=== PATIENT | female | born 1970 | race Caucasian/White ===

== ENCOUNTER 2022-01-13 06:01 | Day surgery (SDC) | payer BC, SELFPAY ==
[2022-01-13] VITALS (7 sets, daily range): BP systolic 98–112; BP diastolic 56–77; PULSE 64–76; RESP 16; TEMP 36.1–36.8; O2SAT 99–100; BMI 29.5
[2022-01-13] MEDS: Lactated Ringers 1,000 ML 15 ML IV (06:44)
--- NOTE | 2022-01-13 06:49 | HP.PCM_ITS ---
History and Physical Date of Admission: 01/13/22 Date of Service: 01/04/22 MR#:[id number]:[id number]: QUIANA ROWE [facility] #:[id number] Provider:Fausto Ware/Sex: 51/F [facility] Vital Signs 01/04/22 14:33 Height 5 ft 6 in Weight: 190 lb BMI 30.7 BP 117/74 Blood Pressure Location Rt brachial Position Sitting Respiration 16 Intake Visit Reasons: PORT PLACEMENT Chief Complaint: port placement Svp Of Digital Required: No Is patient in pain?: No Allergies No Known Allergies Allergy (Unverified 01/04/22 14:33) Medications acetaminophen 325 mg capsule 325 mg PO ONCE PRN 12/22/21 [History Confirmed 01/04/22] PFSH Medical History Anemia Cervical cancer Regional lymph node metastasis present Surgical History H/O exploratory laparotomy History of radical hysterectomy Hx of tubal ligation Previous section Family History Father COPD (chronic obstructive pulmonary disease) Heart disease Sister CVA (cerebral vascular accident) Social History household members: spouse number of children: 4 current occupational status: other details: on FMLA other: pt had two children (1 , 1 ) Smoking Status: Former smoker pack-years: 10 Tobacco: How many years used: 20 how long ago did patient quit smoking: smoked [id number]; quit smoking >16 years ago alcohol intake: current alcohol intake frequency: holidays/special occasions only Alcohol type: wine and other substance use type: does not use caffeine: Yes Type: coffee Number of servings: 2 HPI HPI HPI: QUIANA ROWE, is a 51 F who presents to the office today for port placement due to cervical cancer. Patient states she is still recovering from surgery. Patient does have a dense appointment tomorrow as she has a previous cracked tooth question if it needs to be pulled prior to starting chemotherapy. Patient states plan to start chemotherapy January 16. ROS General General: Yes fatigue; No weight change, appetite, colon cancer or breast cancer HEENT HEENT: No difficulty swallowing, eye injury, eye surgery, swollen glands or hoarseness Endo Endocrine: No thyroid disease, diabetes mellitus, thyroid cancer, Hair loss, heat intolerance or cold intolerance Skin Skin: No rash or changing moles Musc Musculoskeletal: No back problems, arthritis, rheumatoid arthritis, gout or join t pain Cardio Cardiovascular: No murmur, pacemaker, heart disease, atrial fibrillation, high blood pressure, heart attack, heart stent, palpitations, shortness of breat with exertion or chest pain Psych Psychiatric: Yes depression and anxiety; No hearing voices Resp Respiratory: No shortness of breath, No sleep apnea, No cough, No COPD, No asthma, No emphysema and No wheezing Gastro Gastrointestinal: Yes abdominal pain, No nausea or vomiting, No diarrhea, No constipation, No blood in stool, No acid reflux, No hemorrhoids, No ulcers, No gallbladder problem and No black,tarry stools Juan Hematologic: No blood thinners, No blood disorders, No bleeding, No anemia and No blood clots Neuro Neurologic: No abnormal speech and No confusion Exam Const General: cooperative, healthy appearing, comfortable and no acute distress Neck Neck: normal visual inspection Chest Other: Inspection and palpation of bilateral upper chest normal Resp Effort & Inspection: normal respiratory effort Cardio Rate: regular rate GI Inspection: non-distended Palpation: soft Skin General: no rashes or lesions noted Neuro General: patient oriented x3 Psych Affect: normal affect Assessment and Plan Assessment and Plan (1) Encounter for fitting and adjustment of vascular catheter: Status: Acute (2) Cervical cancer: Status: Acute Qualifiers: Malignant neoplasm of cervix location: unspecified location Qualified Code(s): C53.9 - Malignant neoplasm of cervix uteri, unspecified (3) Regional lymph node metastasis present: Status: Acute Plan - Dr. Kelly Arreaga MD: I have discussed above with the patient- Port-a-Cath placement. Right possible left Patient has been counseled as to the risks/benefits of the procedure. I have explained the risks of the surgery, including but not limited to: infection, bleeding, injury to any blood vessels/nerves, injury to lungs (such as pneumothorax or hemothorax and need for chest tube), not having any access, nonfunctioning of port due to thrombosis, infection of port, etc. the patient understands and agrees to proceed. I have answered all the patient's questions to the patient?s satisfaction and the patient has no further questions. Kelly Arreaga M.D. Pager: [phone] [facility] [address] [place] [address], [address] [place] [address] Office: [phone] Coding Level of Care Code Off vis,new,level 3 Diagnoses Encounter for fitting and adjustment of vascular catheter Z45.2 Cervical cancer C53.9 Malignant neoplasm of cervix location: unspecified location Regional lymph node metastasis present C77.9 01/04/22 1452<Electronically signed by Kelly Arreaga MD>Date Kelly Arreaga MD
[2022-01-13] MEDS: Cefazolin 2 GM in 0.9% Normal Saline 100 ML IV (07:34)
[2022-01-13] MEDS: Bupivacaine Mpf 0.5% 30 ML VIAL (07:46)
[2022-01-13] MEDS: Lidocaine 1% /Epi 1:100 (20ml) 20 ML Vial (07:46)
--- NOTE | 2022-01-13 08:09 | RAD_ITS ---
STUDY: X-RAY CHEST REASON FOR EXAM: Female, 51 years old. Port -- pacu TECHNIQUE: Single AP portable view of the chest. COMPARISON: None. FINDINGS: A right-sided Port-A-Cath has been placed. The tip is at the junction of the superior vena cava and right atrium. The lungs are clear and expanded. Scattered granulomas. There is no demonstrated pleural abnormality. Normal size heart. Normal mediastinum and son. Normal visualized pulmonary arteries. Normal visualized aortic arch and descending thoracic aorta. Normal visualized thoracic spine. Normal visualized ribs, clavicles, and shoulders. There is no demonstrated abnormality of the visualized soft tissue structures of the upper abdomen. RAD/CXR for Line Placement IMPRESSION: The tip of the right portacatheter is at the junction of the superior vena cava and right atrium. Electronically Signed: Kameron Tripathi MD at 9:00 EDT ,
--- NOTE | 2022-01-13 08:09 | PCM.OPRPT ---
Report of Operation Date of Procedure: 01/13/22 Pre-Operative Diagnosis: Z45.2, cervical cancer Post-Operative Diagnosis: Same Surgery/Procedure Performed:: 1. Placement of right IJ Port-A-Cath 2. Use of fluoroscopy 3. Use of ultrasound Surgeon: Kelly Arreaga Type of Anesthesia: Local MAC Anesthesiologist: Telly Badillo Special Medications: Ancef 2 g IV x1 Estimated Blood Loss (mL): Minimal Description of Procedure: After informed consent was given, the patient was brought to the operating room and placed in the supine position. Appropriate time out protocol was followed. Patient was then given IV conscious sedation for anesthesia. The patient's right upper chest and neck were then prepped with a surgical skin preparation and sterile surgical drapes were placed. After proper landmarks were ascertained, the skin at the upper right chest area was then infiltrated with 1:1 mixture of 1% lidocaine with epinephrine and 0.5% marcaine. A needle trocar was then inserted into the right internal jugular vein with ultrasound guidance-multiple vessels were viewed with u/s and the right IJ was chosen-- and there was good aspiration of venous blood. A wire was then threaded into the needle trocar and this was visualized under fluoroscopy to ensure that the wire was in the superior vena cava. Once this was done, then the needle trocar was removed. A small skin scottie was made with an 11 blade knife at the wire entrance site. The dilator with the introducer sheath attached was then placed over the wire into the right internal jugular vein via the Seldinger technique and this was visualized under fluoroscopy. The dilator and sheath were in proper position as visualized by fluoroscopy. A subcutaneous pocket was then created caudad to the catheter insertion site. A transverse skin incision was made after the skin and subcutaneous tissues were infiltrated with local anesthetic. Blunt dissection was then used to create a space large enough for placement of the subcutaneous port. The catheter was then tunneled into the subcutaneous pocket. The wire and dilator were then removed. The catheter was then threaded into the introducer sheath and was positioned with its tip at the junction of the superior vena cava and the right atrium as visualized under fluoroscopy. The excess catheter was transected. The catheter was then attached to the subcutaneous port using manufacturers guidelines. The catheter was flushed with a heparin saline mixture prior to placement. Hemostasis was carefully controlled with electrocautery. The port was sutured to the subcutaneous fascia using 2-0 Vicryl suture at two sites. The port was then placed in the subcutaneous pocket. The incision were reapproximated with interrupted subdermal 3-0 vicryl sutures. The skin was reapproximated with 3-0 nylon suture in a interrupted fashion. Steristrips were used for reinforcement of the skin closure at IJ insertion site and a sterile opsite dressings were applied. The patient tolerated the procedure well. Grafts/Implants Used: Bard PowerPort isp M.R.I. 6Fr Lot [id number] Complications none
--- NOTE | 2022-01-13 08:11 | EX.PCM.DISCH ---
Discharge Instructions Procedure Port-A-Cath Diet Discharge Diet: Light diet - advance as tolerated Activity May shower in (days): 5 (Keep port site clean and dry x5 days. Neck incision okay to get wet after 1 day. Okay to lower shower and upper sponge bath. OR okay to taper off port site with a Ziploc bag to shower) Lifting Restrictions: No lifting > 15 pounds for 3 days with the arm on the side of the port Dressing / Incision Call your doctor if your incision/area has: Continuous Slow Oozing, Sudden Increased Bleeding, Increased Pain/ Swelling, Increased Redness, Foul Smelling Discharge and Swelling at the incision site Call your doctor if you observe: Fever of 101 or Higher Change Dressing in: 2 days Follow Up Care Please Follow Up With: Kelly Arreaga MD When: In 10 days for permanent suture removal?call office for appointment Test Results: Test results from this visit will be discussed in further detail at your follow-up appointment, if applicable. Discharge Plan Admission Attending Provider: Kelly Arreaga Discharge Orders/Prescriptions Prescriptions: No Action acetaminophen 325 mg capsule 325 mg PO ONCE PRN (Reason: Pain) RF: 0 prochlorperazine maleate 10 mg tablet 10 mg PO Q6H PRN (Reason: nausea and vomiting) Qty: 30 RF: 2 ondansetron 8 mg tablet,disintegrating 8 mg PO Q8H PRN (Reason: nausea and vomiting) Qty: 30 RF: 1 lidocaine-prilocaine 2.5-2.5 % cream 1 applic topical ONCE PRN (Reason: port access) 30 Days Qty: 30 RF: 2 dexamethasone 4 mg tablet 8 mg PO .COMPLEX Qty: 40 RF: 0 polyethylene glycol 3350 [Miralax] 17 gram Powder In Packet 17 g PO DAILY PRN (Reason: Constipation) RF: 0 Referrals / Follow Up: AMAURY TIM [Other] Disposition Disposition (needs filled in before D/C Order can be placed): Home, Self Care
== END 2022-01-13 09:20 | disposition home or self-care (01) ==
LOC: SDC 06:07 → AC 06:08
PROVIDERS: Referring Provider Surgery; Visit Provider Surgery
PROC: (CPT 36561; principal; 2022-01-13 07:15)
DX: Z45.2 Encounter for adjustment and management of vascular access device (principal); C77.9 Secondary and unspecified malignant neoplasm of lymph node, unspecified; C53.9 Malignant neoplasm of cervix uteri, unspecified; Z87.891 Personal history of nicotine dependence; D64.9 Anemia, unspecified
CPT/HCPCS: 36561; 00532; 71045; 77001; J7120; J2405

== ENCOUNTER 2022-03-02 10:23 | Emergency (ER) | payer BC, SELFPAY ==
[2022-03-02 10:24] VITALS: BP 110/70; PULSE 116; RESP 18; TEMP 36.6; O2SAT 100; BMI 29.0
--- NOTE | 2022-03-02 10:39 | EX.ED.DYSGE1 ---
HPI <SHAKILA Guerin - Last Filed: 03/02/22 13:07> History of Present Illness Chief Complaint: Nausea/Vomiting Narrative Narrative: 51-year-old female with PMH of cervical cancer s/p radical hysterectomy presents with nausea and vomiting. She just finished chemo and radiation treatments about a week ago. The day after her last radiation treatment she started to have nausea and vomiting which was initially just once per day but has progressively worsened. Her radiation doctor had prescribed antiemetics to take on a schedule but over the last 2 days she has not been able to keep them down. She has not been eating and drinking and today had decreased urine output. Normal bowel movements. She has no significant abdominal pain just cramping while vomiting. PFSH <SHAKILA Guerin - Last Filed: 03/02/22 13:07> PFS Medical History Anemia Anxiety Back pain Bladder disease Cancer Cervical cancer CINV (chemotherapy-induced nausea and vomiting) Depression Diarrhea Diarrhea due to drug Elevated ALT measurement Encounter for chemotherapy management Encounter for education Former smoker Heartburn Herpes zoster Loose, teeth Low iron Mild acid reflux Regional lymph node metastasis present Restless legs Tinnitus Wears glasses Home Medications dexamethasone 4 mg tablet 8 mg PO .COMPLEX #40 tabs 01/05/22 [Rx Last Taken Unknown] lidocaine-prilocaine 2.5 %-2.5 % topical cream 1 applic topical ONCE PRN port access 30 days #30 grams 01/05/22 [Rx Last Taken Unknown] prochlorperazine maleate 10 mg tablet 10 mg PO Q6H PRN nausea and vomiting #30 tabs 01/05/22 [Rx Last Taken Unknown] acetaminophen 500 mg tablet (Tylenol Extra Strength) 500 mg PO Q6H PRN 01/17/22 [History Last Taken Unknown] simethicone 125 mg capsule (Gas-X Extra Strength) 125 mg PO QD-BID PRN 01/23/22 [History Last Taken Unknown] ondansetron HCl 8 mg tablet 8 mg PO Q8H #30 tabs 02/14/22 [Rx Last Taken Unknown] loperamide 2 mg capsule (Imodium A-D) 2 mg PO Q6H PRN 02/15/22 [History Last Taken Unknown] ondansetron HCl 4 mg tablet 4 mg PO Q6H PRN nausea and vomiting 5 days #15 tabs 03/02/22 [Rx Last Taken Unknown] Allergy/AdvReac Type Severity Reaction Status Date / Time No Known Allergies Allergy Verified 03/02/22 10:26 Family History Father COPD (chronic obstructive pulmonary disease) Heart disease Sister CVA (cerebral vascular accident) Surgical History H/O exploratory laparotomy History of radical hysterectomy Hx of tubal ligation Previous section Social History household members: spouse number of children: 4 current occupational status: other details: on FMLA other: pt had two children (1 , 1 ) Smoking Status: Former smoker pack-years: 10 Tobacco: How many years used: 20 how long ago did patient quit smoking: smoked [id number]; quit smoking >16 years ago alcohol intake: current alcohol intake frequency: holidays/special occasions only Alcohol type: wine and other substance use type: does not use caffeine: Yes Type: coffee Number of servings: 2 ROS <SHAKILA Guerin - Last Filed: 03/02/22 13:07> ROS ED ROS Narrative Constitutional: Negative for fever, chills, malaise. Eyes: Negative for visual change. ENT: Negative for sore throat, ear pain, rhinorrhea. CVS: Negative for palpitations, chest pain, syncope. Respiratory: Negative for shortness of breath, cough, orthopnea. GI: Positive for nausea, vomiting. Negative for abdominal pain, diarrhea, constipation, melena, hematochezia. : Negative for dysuria, hematuria or frequency. Neuro: Negative for headache, motor/sensory dysfunction. Skin: Negative for rash, abscess, or wound. Musc: Negative for joint pain, swelling, trauma. Heme: Negative for easy bruising, bleeding, lymphadenopathy. EXAM <SHAKILA Guerin - Last Filed: 03/02/22 13:07> Physical Exam Narrative Exam Narrative: CONST: Patient sitting in no acute distress. EYES: Normal inspection. ENT: Normal inspection, dry mucous membranes. NECK: Normal inspection. RESP: No respiratory distress, CTAB. CVS: Rapid but regular rhythm, no murmur, no gallop. ABD: Soft and nontender, no guarding or rebound, nondistended. SKIN: Color normal, no rash, warm, dry, intact. EXTREMITIES: Normal appearance, no pedal edema. NEURO: Oriented x4. PSYCH: Normal affect. Const Vital Signs: 03/02/22 10:24 03/02/22 11:09 03/02/22 13:33 Temperature 97.9 F 97.9 F Temperature Source Temporal Temporal Pulse Rate 116 H 116 H 82 Respiratory Rate 18 18 16 Blood Pressure 110/70 110/70 110/60 Blood Pressure Mean 83 83 Pulse Ox 100 100 99 Oxygen Delivery Method Room Air Room Air <Dr. Faisal Ambrosio MD - Last Filed: 03/02/22 13:51> Physical Exam Const Vital Signs: 03/02/22 10:24 03/02/22 11:09 03/02/22 13:33 Temperature 97.9 F 97.9 F Temperature Source Temporal Temporal Pulse Rate 116 H 116 H 82 Respiratory Rate 18 18 16 Blood Pressure 110/70 110/70 110/60 Blood Pressure Mean 83 83 Pulse Ox 100 100 99 Oxygen Delivery Method Room Air Room Air [facility] <SHAKILA Guerin - Last Filed: 03/02/22 13:07> [facility] Narrative Medical decision making narrative: Patient presents with worsening nausea and vomiting after she finished chemo and radiation last week. She appears well and nontoxic. She is tachycardic in the 110s, otherwise normal vital signs. She has dry mucous membranes with an otherwise benign exam and a soft, nonsurgical abdomen. Plan is to give IV fluids. antiemetics and check basic labs. Labs show improving white count at 3.2, stable anemia at 10.4. Sodium is 134 with the rest of the BMP within normal limits. After zofran and reglan patient is symptomatically improved and able to tolerate p.o. intake. I prescribed Zofran tablets for home. She refused the ODT stating they make her more nauseous but can tolerate the normal tablets. She was discharged in stable condition. Diagnoses 1. Nausea and vomiting 1. History of cervical cancer s/p chemo and radiation I have personally performed a face to face assessment of the patient and have reviewed the DIANA Note. I performed a substantive portion of the visit including all aspects of the following. My pierce findings include: History is remarkable for nausea and vomiting status postchemotherapy. Patient states she vomited once or twice after chemo. Yesterday she vomited numerous times. She presents with dry mouth, thirst and orthostatic symptoms. She contacted the [facility] [place] and they recommended she come to the emergency department. She denies fever or chills. She denies HEENT, cardiac or respiratory symptoms. She denies diarrhea. Exam is patient appears slightly pale. Conjunctive is pale. HEENT exam is remarkable dry tongue and buccal mucosa. Otherwise, the HEENT exams unremarkable. Heart lung exam is unremarkable. Abdomen is soft slightly tympanitic bowel sounds are diminished. Medical Decision Making we will obtain basic metabolic panel to assess electrolytes and renal function. 2 L of normal saline were ordered. She was treated with IV antiemetic. Other additions or changes: [None] Lab Data Attestation: I reviewed the patient's lab results. Labs: Laboratory Results - last 24 hr 03/02/22 03/02/22 10:53 10:53 WBC 3.2 L RBC 3.65 L Hgb 10.4 L Hct 31.1 L MCV 85.2 MCH 28.5 MCHC 33.4 RDW Std Deviation 66.9 H RDW Coeff of Christopher 21.4 H Plt Count 239 MPV 9.5 Immature Gran % (Auto) 0.600 Neut % (Auto) 68.3 Lymph % (Auto) 8.7 L [place] % (Auto) 22.4 H Eos % (Auto) 0.0 Baso % (Auto) 0.0 Absolute Neuts (auto) 2.2 Absolute Lymphs (auto) 0.28 L Nucleated RBC % 0 Differential Comment COMMENT Diff Path Review May foll Anisocytosis 1+ Sodium 134 L Potassium 3.7 Chloride 99 Carbon Dioxide 26.0 Anion Gap 9 BUN 11 Creatinine 0.95 Estim Creat Clear Calc 64.85 Est GFR (MDRD) Af Amer 79 Est GFR (MDRD) Non-Af 65 BUN/Creatinine Ratio 11.6 Glucose 120 H Calcium 9.5 <Dr. Faisal Ambrosio MD - Last Filed: 03/02/22 13:51> [facility] Narrative Medical decision making narrative: Patient presents with worsening nausea and vomiting after she finished chemo and radiation last week. She appears well and nontoxic. She is tachycardic in the 110s, otherwise normal vital signs. She has dry mucous membranes with an otherwise benign exam and a soft, nonsurgical abdomen. Plan is to give IV fluids and Zofran and check basic labs. Labs show improving white count at 3.2, stable anemia at 10.4. Sodium is 134 with the rest of the BMP within normal limits. Patient is symptomatically improved and able to tolerate p.o. intake. I prescribed Zofran ODT for home and she was discharged in stable condition. Diagnoses 1. Nausea and vomiting 1. History of cervical cancer s/p chemo and radiation I have personally performed a face to face assessment of the patient and have reviewed the DIANA Note. I performed a substantive portion of the visit including all aspects of the following. My pierce findings include: History is remarkable for nausea and vomiting status postchemotherapy. Patient states she vomited once or twice after chemo. Yesterday she vomited numerous times. She presents with dry mouth, thirst and orthostatic symptoms. She contacted the [facility] and they recommended she come to the emergency department. She denies fever or chills. She denies HEENT, cardiac or respiratory symptoms. She denies diarrhea. Exam is patient appears slightly pale. Conjunctive is pale. HEENT exam is remarkable dry tongue and buccal mucosa. Otherwise, the HEENT exams unremarkable. Heart lung exam is unremarkable. Abdomen is soft slightly tympanitic bowel sounds are diminished. Medical Decision Making we will obtain basic metabolic panel to assess electrolytes and renal function. 2 L of normal saline were ordered. She was treated with IV antiemetic. Other additions or changes: [None] Lab Data Labs: Laboratory Results - last 24 hr 03/02/22 03/02/22 10:53 10:53 WBC 3.2 L RBC 3.65 L Hgb 10.4 L Hct 31.1 L MCV 85.2 MCH 28.5 MCHC 33.4 RDW Std Deviation 66.9 H RDW Coeff of Christopher 21.4 H Plt Count 239 MPV 9.5 Immature Gran % (Auto) 0.600 Neut % (Auto) 68.3 Lymph % (Auto) 8.7 L [place] % (Auto) 22.4 H Eos % (Auto) 0.0 Baso % (Auto) 0.0 Absolute Neuts (auto) 2.2 Absolute Lymphs (auto) 0.28 L Nucleated RBC % 0 Differential Comment COMMENT Diff Path Review May foll Anisocytosis 1+ Sodium 134 L Potassium 3.7 Chloride 99 Carbon Dioxide 26.0 Anion Gap 9 BUN 11 Creatinine 0.95 Estim Creat Clear Calc 64.85 Est GFR (MDRD) Af Amer 79 Est GFR (MDRD) Non-Af 65 BUN/Creatinine Ratio 11.6 Glucose 120 H Calcium 9.5 Discharge Plan Triage Chief Complaint: Nausea/Vomiting ED Midlevel Provider: Karen Hummel ED Provider: Faisal Ambrosio Dx/Rx/DC Orders Clinical Impression: Nausea & vomiting Instructions: ED Vomiting (Adult) Prescriptions: New ondansetron HCl 4 mg tablet 4 mg PO Q6H PRN (Reason: nausea and vomiting) 5 Days Qty: 15 0RF No Action prochlorperazine maleate 10 mg tablet 10 mg PO Q6H PRN (Reason: nausea and vomiting) Qty: 30 2RF lidocaine-prilocaine 2.5-2.5 % cream 1 applic topical ONCE PRN (Reason: port access) 30 Days Qty: 30 2RF dexamethasone 4 mg tablet 8 mg PO .COMPLEX Qty: 40 0RF Rx Instructions: 8 mg PO On days 2, 3 and 4 of chemotherapy cycle only; acetaminophen [Tylenol Extra Strength] 500 mg tablet 500 mg PO Q6H PRN simethicone [Gas-X Extra Strength] 125 mg capsule 125 mg PO QD-BID PRN ondansetron HCl 8 mg tablet 8 mg PO Q8H Qty: 30 2RF loperamide [Imodium A-D] 2 mg capsule 2 mg PO Q6H PRN Primary Care Provider: AMAURY TIM Referrals: [facility] Doctor,Out of [NON-STAFF] - Activity Restrictions/Additional Instructions: Take zofran as needed every 6 hours. Drink fluids and if you cannot manage your vomiting at home return to the ER. Disposition Disposition: Home, Self Care Discharge Date/Time: 03/02/22 13:35
[2022-03-02] MEDS: 0.9% Normal Saline 1,000 ML 999 ML IV ×2 (10:57→12:15)
[2022-03-02] MEDS: Ondansetron 4 MG/2 ML Vial IV (10:59)
[2022-03-02 11:09] VITALS: BP 110/70; PULSE 116; RESP 18; TEMP 36.6; O2SAT 100
[2022-03-02 11:10] LABS: Absolute Lymphocyte Count 0.28 X10^3/uL (0.83-4.51); Absolute Neutrophil Count 2.2 X10^3/uL (2.0-7.7); Hematocrit 31.1 % (37-47); Hemoglobin 10.4 g/dL (12.0-15.0); Lymphocyte # 0.28 X10^3/ul (0.83-4.51); Lymphocyte % 8.7 % (19-41); Mean Corp Hgb Conc 33.4 g/dL (32-36); Mean Corpuscular Hgb 28.5 pg (27.0-32.0); Mean Corpuscular Volume 85.2 fL (81-99); Mean Platelet Vol. 9.5 fl (6.2-12.0); Monocyte# 0.72 X10^3/uL; Monocyte% 22.4 % (0-10); NRBC Flagged by Analyzer 0 % (0-5); Neutrophil % 68.3 % (47-70); POSITIVE DIFFERENTIAL YES; POSITIVE MORPHOLOGY YES; Platelet Count 239 K/mm3 (150-450); RBC Distribution Width CV 21.4 % (11.6-14.6); RBC Distribution Width SD 66.9 fl (35.1-43.9); Red Blood Count 3.65 M/mm3 (4.2-5.4); White Blood Count 3.2 K/mm3 (4.4-11.0)
[2022-03-02 11:11] LABS: Differential Indicated SCAN CRITERIA MET
[2022-03-02 11:18] LABS: Anion Gap 9 (5-15); BUN 11 mg/dL (7-18); BUN/Creat Ratio 11.6 RATIO (10-20); Calcium,Total 9.5 mg/dL (8.5-10.1); Chloride 99 mmol/L (98-107); Creatinine, Serum 0.95 mg/dL (0.55-1.02); EST Glomerular Filtration Rate 65 mL/min (>60); Est Glom Filt Rate - Afr Amer 79 mL/min (>60); Estimated Creatinine Clearance 64.85 ml/min; Glucose 120 mg/dL (74-106); Potassium 3.7 mmol/L (3.5-5.1); Sodium Level 134 mmol/L (136-145)
[2022-03-02 11:30] LABS: Anisocytosis 1+
[2022-03-02] MEDS: Metoclopramide 10 MG/2 ML Vial 5 MG IV (11:38)
[2022-03-02 13:33] VITALS: BP 110/60; PULSE 82; RESP 16; O2SAT 99
[2022-03-03 13:07] LABS: Pathologist Review Reviewed
== END 2022-03-02 13:35 | disposition home or self-care (01) ==
PROVIDERS: Physician Assistant; Emergency Provider Emergency Medicine; Visit Provider Emergency Medicine
DX: R11.2 Nausea with vomiting, unspecified (principal); D64.9 Anemia, unspecified; Z87.891 Personal history of nicotine dependence; Z85.41 Personal history of malignant neoplasm of cervix uteri; Z92.21 Personal history of antineoplastic chemotherapy
CPT/HCPCS: 36591; 80048; 85025; 96361; 96374; 96375; 99284; J7030; A4216; J2405

== ENCOUNTER 2022-03-22 16:19 | Inpatient (IN) | payer BC, SELFPAY ==
[2022-03-22 16:20] VITALS: BP 123/81; PULSE 101; RESP 18; TEMP 36.4; O2SAT 100; BMI 25.9
--- NOTE | 2022-03-22 16:32 | CT_ITS ---
EXAM: CT ABDOMEN AND PELVIS WITHOUT INTRAVENOUS CONTRAST CLINICAL INDICATION: left flank pain TECHNIQUE: Helically acquired images were obtained of the abdomen and pelvis without intravenous contrast. This CT exam was performed using one or more of the following dose reduction techniques: automated exposure control, adjustment of the mA and/or kV according to patient size, and/or use of iterative reconstruction technique. This report was created using Qwilr report generation technology. COMPARISON: None. FINDINGS: LOWER THORAX: Unremarkable. Lung bases are clear. No cardiomegaly. No significant pericardial effusion. ABDOMEN: LIVER: Unremarkable. Homogeneous. GALLBLADDER AND BILE DUCTS: Unremarkable. No calcified gallstones. No gallbladder distention or wall edema. No intra- or extrahepatic biliary ductal dilation. PANCREAS: Unremarkable. No focal cystic mass. SPLEEN: Unremarkable. Normal size without focal cystic or solid mass. ADRENALS: Unremarkable. No nodules. KIDNEYS AND URETERS: There is left-sided hydronephrosis and hydroureter. There is a 5 mm stone in the mid left ureter. Normal renal size and position. STOMACH AND BOWEL: Unremarkable. No stomach or bowel distention. No focal inflammatory change. PELVIS: APPENDIX: No evidence of acute appendicitis. BLADDER: Unremarkable. REPRODUCTIVE: Unremarkable as visualized. No mass. ABDOMEN and PELVIS: INTRAPERITONEAL SPACE: Unremarkable. No ascites or other fluid collection. No free air. BONES/JOINTS: Unremarkable. No suspicious lytic or blastic abnormality. SOFT TISSUES: Unremarkable. No discrete abdominal or pelvic wall hernia. VASCULATURE: Unremarkable. Abdominal aorta is non-dilated. LYMPH NODES: Unremarkable. No enlarged lymph nodes. CT/Abdomen/Pelvis without Cont IMPRESSION: Obstruction of the left collecting system due to a 5 mm stone in the mid ureter. There is moderate to severe left-sided hydronephrosis and hydroureter. Electronically Signed: Raheem Hawthorne MD at 17:11 EDT ,
--- NOTE | 2022-03-22 16:33 | EX.ED.DYSGE1 ---
HPI History of Present Illness Chief Complaint: Abd Pain Informant: patient Onset/Context/Timing Onset: Days Context: Gradual Onset Narrative Narrative: Patient presents from oncology office for evaluation. Patient was diagnosed with stage III cervical cancer and had a hysterectomy, oophorectomy, lymph node removal in November. At that time with there was an injury to the left ureter that was repaired. Patient completed 4-6 cycles of cisplatin in late January. She finished radiation in mid February. Since she has completed her treatment she continues to have significant nausea and vomiting. She was seen in the office 1 week ago and had been noted to lose 15 pounds in 3 weeks. She met with nutrition and continued her antiemetics. She followed up today and has lost an additional 4 pounds. Patient states she was able to keep down a few sips of water today. She had hypoactive bowel sounds noted on exam and has been complaining of left flank pain for the past 5 days. She denies urinary symptoms. She reports having a normal bowel movement yesterday and is passing gas today. CBC and chemistry studies were obtained in the office. Creatinine is 1.07 with a baseline of 0.6. Hemoglobin is 10.2. [facility] Medical History Anemia Anxiety Back pain Bladder disease Cancer Cervical cancer CINV (chemotherapy-induced nausea and vomiting) Depression Diarrhea Diarrhea due to drug Elevated ALT measurement Encounter for chemotherapy management Encounter for education Former smoker Heartburn Herpes zoster Loose, teeth Low iron Mild acid reflux Regional lymph node metastasis present Restless legs Smell or taste sensation disturbance Tinnitus Wears glasses Weight loss Home Medications lidocaine-prilocaine 2.5 %-2.5 % topical cream 1 applic topical ONCE PRN port access 30 days #30 grams 01/05/22 [Rx Last Taken Unknown] acetaminophen 500 mg tablet (Tylenol Extra Strength) 500 mg PO Q6H PRN Pain 01/17/22 [History Last Taken Unknown] simethicone 125 mg capsule (Gas-X Extra Strength) 125 mg PO QD-BID PRN Gastric Reflux 01/23/22 [History Last Taken Unknown] loperamide 2 mg capsule (Imodium A-D) 2 mg PO Q6H PRN Diarrhea 02/15/22 [History Last Taken Unknown] prochlorperazine maleate 10 mg tablet 10 mg PO Q6H PRN nausea and vomiting #30 tabs 03/07/22 [Rx Last Taken Unknown] ondansetron HCl 8 mg tablet 8 mg PO Q8H #30 tabs 03/20/22 [Rx Last Taken Unknown] Allergy/AdvReac Type Severity Reaction Status Date / Time No Known Allergies Allergy Verified 03/22/22 16:20 Family History Father COPD (chronic obstructive pulmonary disease) Heart disease Sister CVA (cerebral vascular accident) Surgical History H/O exploratory laparotomy History of radical hysterectomy Hx of tubal ligation Previous section Social History household members: spouse number of children: 4 current occupational status: other details: on FMLA other: pt had two children (1 , 1 ) Smoking Status: Former smoker pack-years: 10 Tobacco: How many years used: 20 how long ago did patient quit smoking: smoked [id number]; quit smoking >16 years ago alcohol intake: current alcohol intake frequency: holidays/special occasions only Alcohol type: wine and other substance use type: does not use caffeine: Yes Type: coffee Number of servings: 2 ROS ROS ED Constitutional Constitutional ED: Denies chills or fever(s) Eyes Eyes: Denies change in vision or discharge from eye(s) ENT ENT ED: Reports other Details: Altered taste sensation ; Denies discharge from eye(s), rhinorrhea or sore throat Cardiovascular Cardiovascular: Denies chest pain or palpitations Respiratory/Chest Respiratory/Chest: Denies cough or dyspnea Gastrointestinal Gastrointestinal: Reports abdominal pain, nausea and vomiting; Denies diarrhea Genitourinary Genitourinary ED: Denies difficulty urinating or dysuria Musculoskeletal Musculoskeletal: Reports back pain; Denies extremity pain Integumentary Denies Abrasions or rash Neurologic Neurologic: Denies headache(s) or weakness Allergic/Immunologic Allergic/Immunologic ED: Denies lip swelling or urticaria EXAM Physical Exam Const Vital Signs: 03/22/22 16:20 Temperature 97.5 F L Temperature Source Temporal Pulse Rate 101 H Respiratory Rate 18 Blood Pressure 123/81 H Blood Pressure Mean 95 Pulse Ox 100 Oxygen Delivery Method Room Air Positive well nourished and well developed General Appearance ED: well developed HEENT Reports normocephalic and head/scalp atraumatic Eyes PERRL and EOMs intact bilaterally Neck supple Chest Wall inspection of chest normal and palpation of chest normal Resp normal respiratory effort and clear to auscultation bilaterally Cardio regular rate and regular rhythm GI non-tender Auscultation: hypoactive bowel sounds Palpation: soft Extremity normal to inspection Neuro oriented x3 and no sensory deficits noted Sensorium / Orientation: alert Motor Exam: strength 5/5 throughout Psych mental status grossly normal Skin no rashes or lesions noted MDM MDM MDM Narrative Medical decision making narrative: Patient was given IV fluids. CBC and chemistries from earlier today are reviewed. Urinalysis and CT flank ordered. Lab Data Attestation: I reviewed the patient's lab results. Labs: Laboratory Results - last 24 hr 03/22/22 16:40 Urine Color Yellow Urine Clarity Cloudy Urine pH 6.0 Ur Specific [place] 1.020 Urine Protein 30 H Urine Glucose (UA) Normal Urine Ketones 150 A* Urine Occult Blood 50 H Urine Nitrite Negative Urine Bilirubin 1 H Urine Urobilinogen 1 H Ur Leukocyte Esterase 500 H Urine RBC 5-10 SEEN Urine WBC >100 SEEN Ur Squamous Epith Cells 5-10 SEEN Urine Bacteria 3+ Urine Mucus 0 SEEN Radiography Diagnostic Testing: Clinical Impression(s) from Imaging Studies Abdomen/Pelvis CT 03/22/22 16:32 IMPRESSION: Obstruction of the left collecting system due to a 5 mm stone in the mid ureter. There is moderate to severe left-sided hydronephrosis and hydroureter. Electronically Signed: Raheem Hawthorne MD at 17:11 EDT , Treatment and Re-Evaluation Narrative: Urinalysis does reveal concern for infection with 3+ bacteria and greater than 100 white cells. Urine culture was sent and she was treated with a dose of Rocephin. CT scan shows an obstruction of the left collecting system with a 5 mm stone in the mid ureter. I spoke with Dr. Wilder, on-call for urology. He will admit her to his service for further treatment. Discharge Plan Triage Chief Complaint: Abd Pain ED Provider: Leilani Sneed Dx/Rx/DC Orders Clinical Impression: Ureterolithiasis, Vomiting, History of cervical cancer Prescriptions: No Action lidocaine-prilocaine 2.5-2.5 % cream 1 applic topical ONCE PRN (Reason: port access) 30 Days Qty: 30 2RF acetaminophen [Tylenol Extra Strength] 500 mg tablet 500 mg PO Q6H PRN (Reason: Pain) simethicone [Gas-X Extra Strength] 125 mg capsule 125 mg PO QD-BID PRN (Reason: Gastric Reflux) loperamide [Imodium A-D] 2 mg capsule 2 mg PO Q6H PRN (Reason: Diarrhea) prochlorperazine maleate 10 mg tablet 10 mg PO Q6H PRN (Reason: nausea and vomiting) Qty: 30 2RF ondansetron HCl 8 mg tablet 8 mg PO Q8H Qty: 30 2RF Primary Care Provider: Lyssa Patrick Referrals: Lyssa Patrick [Other] Disposition Disposition: Acute Care Hospital [facility]
[2022-03-22] MEDS: 0.9% Normal Saline 1,000 ML 1000 ML IV (16:43)
[2022-03-22 16:52] LABS: Mucous, Urine 0 SEEN /hpf (<or=2+)
[2022-03-22 17:07] LABS: Color, Urine Yellow (Yellow); Glucose, Dipstick Normal (Normal); Leukocyte Esterase-Dipstick 500 /ul (Negative); Nitrite-Dipstick Negative (Negative); Occult Blood-Urine 50 /ul (Negative); Protein-Dipstick 30 mg/dl (Negative); Urine Clarity Cloudy (Clear); Urine Urobilinogen 1 mg/dl (Normal)
[2022-03-22 17:15] LABS: Urine Bilirubin Dipstick 1 mg/dL (Negative)
[2022-03-22 17:16] LABS: Bacteria 3+ /hpf (None Seen); Ketone-Dipstick 150 mg/dl (Negative); Red Blood Cells-Urine 5-10 SEEN /hpf (0-5); Squamous Epithelial Cells - UA 5-10 SEEN /hpf (5-10); White Blood Cells >100 SEEN /hpf (0-5)
[2022-03-22] MEDS: Ceftriaxone 1 GM/50 ML BAG IV (17:42)
[2022-03-22 18:28] VITALS: BP 138/77; PULSE 79; RESP 16; TEMP 36.7; O2SAT 97
[2022-03-22] MEDS: 0.9% Normal Saline 1,000 ML 150 ML IV (18:28)
--- NOTE | 2022-03-22 18:49 | PCM.HP.STD ---
[facility] - General General Date of Admission: 03/22/22 Chief Complaint: Left flank pain and nausea and vomiting. HPI Narrative QUIANA ROWE, is a 51 F who presents with left flank pain with 5mm stone in mid left ureter, h/o left ureteral reimplantation 2nd to injury of ureter, h/o cervical cancer with major sugery this past year, hysterctomy and lymphnodes dissection. [facility] Medical History Anemia Anxiety Back pain Bladder disease Cancer Cervical cancer CINV (chemotherapy-induced nausea and vomiting) Depression Diarrhea Diarrhea due to drug Elevated ALT measurement Encounter for chemotherapy management Encounter for education Former smoker Heartburn Herpes zoster Loose, teeth Low iron Mild acid reflux Regional lymph node metastasis present Restless legs Smell or taste sensation disturbance Tinnitus Wears glasses Weight loss Home Medications lidocaine-prilocaine 2.5 %-2.5 % topical cream 1 applic topical ONCE PRN port access 30 days #30 grams 01/05/22 [Rx Last Taken Unknown] acetaminophen 500 mg tablet (Tylenol Extra Strength) 500 mg PO Q6H PRN Pain 01/17/22 [History Last Taken Unknown] simethicone 125 mg capsule (Gas-X Extra Strength) 125 mg PO QD-BID PRN Gastric Reflux 01/23/22 [History Last Taken Unknown] loperamide 2 mg capsule (Imodium A-D) 2 mg PO Q6H PRN Diarrhea 02/15/22 [History Last Taken Unknown] prochlorperazine maleate 10 mg tablet 10 mg PO Q6H PRN nausea and vomiting #30 tabs 03/07/22 [Rx Last Taken Unknown] ondansetron HCl 8 mg tablet 8 mg PO Q8H #30 tabs 03/20/22 [Rx Last Taken Unknown] Allergy/AdvReac Type Severity Reaction Status Date / Time No Known Allergies Allergy Verified 03/22/22 16:20 Family History Father COPD (chronic obstructive pulmonary disease) Heart disease Sister CVA (cerebral vascular accident) Surgical History H/O exploratory laparotomy History of radical hysterectomy Hx of tubal ligation Previous section Social History household members: spouse number of children: 4 current occupational status: other details: on FMLA other: pt had two children (1 , 1 ) Smoking Status: Former smoker pack-years: 10 Tobacco: How many years used: 20 how long ago did patient quit smoking: smoked [id number]; quit smoking >16 years ago alcohol intake: current alcohol intake frequency: holidays/special occasions only Alcohol type: wine and other substance use type: does not use caffeine: Yes Type: coffee Number of servings: 2 Addt'l Information Additional Findings: ct scan reviewed Vital Signs Vital Signs Vital Signs: 03/22/22 16:20 03/22/22 18:28 Temperature 97.5 F L 98.1 F Temperature Source Temporal Temporal Pulse Rate 101 H 79 Respiratory Rate 18 16 Blood Pressure 123/81 H 138/77 H Blood Pressure Mean 95 97 Pulse Ox 100 97 Oxygen Delivery Method Room Air Room Air Weight Weight: 73 kg Body Mass Index (BMI) 25.9 Results Medical Records Data Attestation: I reviewed the patient's medical records Lab / Micro Data Attestation: I reviewed the patient's lab results. Labs: Laboratory Results - last 24 hr 03/22/22 16:40: Urine Color Yellow, Urine Clarity Cloudy, Urine pH 6.0, Ur Specific [place] 1.020, Urine Protein 30 H, Urine Glucose (UA) Normal, Urine Ketones 150 A*, Urine Occult Blood 50 H, Urine Nitrite Negative, Urine Bilirubin 1 H, Urine Urobilinogen 1 H, Ur Leukocyte Esterase 500 H, Urine RBC 5-10 SEEN, Urine WBC >100 SEEN, Ur Squamous Epith Cells 5-10 SEEN, Urine Bacteria 3+, Urine Mucus 0 SEEN Radiology Impression Abdomen/Pelvis CT 03/22/22 16:32 IMPRESSION: Obstruction of the left collecting system due to a 5 mm stone in the mid ureter. There is moderate to severe left-sided hydronephrosis and hydroureter. Electronically Signed: Raheem Hawthorne MD at 17:11 EDT , Assessment & Plan Assessment/Plan (1) Ureterolithiasis: PLAN: admit for hydration and pain control, NPO at Mid night will place stent tomorrow in surgery for stone. (2) Vomiting: (3) History of cervical cancer:
[2022-03-22 19:45] VITALS: BMI 26.0
[2022-03-22 19:57] VITALS: BP 121/81; PULSE 80; RESP 18; TEMP 37; O2SAT 100
[2022-03-22] MEDS: Ondansetron 4 MG/2 ML Vial IV (20:53)
[2022-03-23] VITALS (10 sets, daily range): BP systolic 100–115; BP diastolic 56–76; PULSE 70–88; RESP 16–18; TEMP 36.7–37.2; O2SAT 97–100
[2022-03-23] MEDS: 0.9% Normal Saline 1,000 ML 150 ML IV ×4 (00:33→20:23)
--- NOTE | 2022-03-23 07:46 | PCM.CONS.B ---
Consult Date of Consult: 03/23/22 Reason for Consult 51-year-old female admitted for obstructing kidney stone nausea vomiting she has a history of cervical cancer had reimplantation of the left ureter. Today we arranged to have her surgery done at 930 this morning for cystoscopy left retrograde pyelogram and left stent placement for an obstructing stone. Explained to the patient that this point which can to stabilize her with a stent unobstruct the kidney get her feeling better and then what the deal with the stone once everything stabilized. She signed the consent form patient is marked and ready for surgery early this morning.
[2022-03-23] MEDS: Cefazolin 1 GM/50 ML BAG IV (09:30)
--- NOTE | 2022-03-23 09:38 | PCM.OPRPT ---
Report of Operation Date of Procedure: 03/23/22 Pre-Operative Diagnosis: LEFT URETERAL CALCULI WITH OBSTRUCTION. Post-Operative Diagnosis: SAME, LEFT PYELONEPHRITIS. Surgery/Procedure Performed:: CYSTO, LEFT RETROGRADE PYELOGRAM AND LEFT STENT PLACEMENT Description of Surgical Findings:: 51-year-old female presented with severe left renal colic dehydration nausea vomiting, she was admitted for pain control was given antibiotic's. She was taken back to the operating room at the [facility] local went into the bladder with a 21 Turkish rigid cystourethroscope the entire bladder was normal the original trigone was normal she did have a reimplantation of the left dome of the bladder he can see the implanted ureter I then advanced a wire up the left ureter until hit the stone that I performed retrograde pyelogram no contrast was going past the stone and up with the wire and the wire went past the stone up into the kidney and then we advanced the stent it was 6 Turkish by 26 cmstent once a stent, once a stent was in good position then a lot of sheryl pus came from the left kidney collected some of this urine was sent is off her culture. I then drained the bladder anesthesia was reversed and she was taken back to PACU in good condition we will keep her in the hospital for IV antibiotics for pyelonephritis. Surgeon: Benja Wilder Type of Anesthesia: General Drains: STENT LEFT SIDE
--- NOTE | 2022-03-23 12:48 | CASEMGMT ---
JEN PAGE Assessment: Face to Face with pt for initial transition planning/care coordination assessment. RN KAYLEE introduced self and role at [facility], pt voices understanding and consents to assessment. Pt is A/O x4 and answers all questions appropriately at this time. Pt sitting up in bed in no distress. Care providers, pharmacy, and demographics verified/updated. Admitting Dx: L kidney stone, h/o cervical cancer and ureteral PCP:Celina Specialists:Dave and Joanne onc; Jaxon onc cheesemaker helper Preferred Pharmacy: [facility] Retail Insurance: [place] Prescription Benefit: yes LW/HPOA: Pt denies having a LW/DPOA and denies need for info regarding AD. LNOK: Erick Gamez, Living Arrangements: Pt lives with in a single story house with 8 steps to enter with a rail. Pt reports she is I in ADL's and denies concerns at home. Transportation: Pt is able to drive but chooses not to. Her provides transportation. DME/HHC/SNF: Pt denies having any AD in the home, previous HHC or SNF stays. Pt states no concerns with going home at time of dc. Pt states no further concerns/needs. CM to follow. Advised pt to ask CM if any further question/concerns/needs arise, voices understanding. Pt Goal: Home Plan: Home
[2022-03-23] MEDS: Ondansetron 4 MG/2 ML Vial IV ×2 (14:28→20:28)
[2022-03-23] MEDS: Ciprofloxacin 400 MG/200 ML BAG 200 MG IV (20:28)
[2022-03-24 02:03] VITALS: BP 104/65; PULSE 69; RESP 16; TEMP 36.8; O2SAT 99
[2022-03-24] MEDS: 0.9% Normal Saline 1,000 ML 150 ML IV (04:13)
[2022-03-24] MEDS: Ondansetron 4 MG/2 ML Vial IV ×2 (06:20→12:30)
[2022-03-24 08:00] VITALS: BP 117/68; PULSE 62; RESP 16; TEMP 36.7; O2SAT 100
[2022-03-24] MEDS: Ciprofloxacin 400 MG/200 ML BAG 200 MG IV (10:47)
[2022-03-24] MEDS: 0.9% Saline Lock 10 ML Syringe IV ×2 (12:31→13:47)
--- NOTE | 2022-03-24 12:31 | DCINST_ITS ---
Discharge Instructions Diet Discharge Diet: No restrictions and Light diet - advance as tolerated Activity Discharge Activity: Return to Normal Activity and No Restrictions Dressing / Incision Call your doctor if you observe: Fever of 101 or Higher Follow Up Care Please Follow Up With: Benja Wilder MD When: [phone], call my office to set up surgery to laser stone Test Results: Test results from this visit will be discussed in further detail at your follow- up appointment, if applicable. Discharge Plan Admission Admit Date/Time: 03/22/22 18:52 Attending Provider: Benja Wilder Primary Care Provider: Lyssa Patrick Discharge Orders/Prescriptions Prescriptions: No Action lidocaine-prilocaine 2.5-2.5 % cream 1 applic topical ONCE PRN (Reason: port access) 30 Days Qty: 30 2RF acetaminophen [Tylenol Extra Strength] 500 mg tablet 500 mg PO Q6H PRN (Reason: Pain) simethicone [Gas-X Extra Strength] 125 mg capsule 125 mg PO QD-BID PRN (Reason: Gastric Reflux) loperamide [Imodium A-D] 2 mg capsule 2 mg PO Q6H PRN (Reason: Diarrhea) ondansetron HCl 8 mg tablet 8 mg PO Q8H prochlorperazine maleate 10 mg tablet 10 mg PO Q6H PRN (Reason: nausea and vomiting) Qty: 30 2RF Referrals / Follow Up: Lyssa Patrick [Other] Lyssa Patrick [Other] Disposition Discharge Orders: Discharge Patient (Routine); Ordered 03/24/22 Ordered By: Dr. Benja Wilder
--- NOTE | 2022-03-24 12:32 | PCM.DC.SUM ---
Providers Date of Admission: 03/22/22 Primary Care Physician: Lyssa Patrick Reason For Visit: LEFT KIDNEY STONE, H/O CERVICA CA AND URETERAL Diagnosis Discharge Diagnosis (1) Ureterolithiasis: Status: Acute Code(s): N20.1 - Calculus of ureter Plan: sp stent (2) Vomiting: Status: Acute Code(s): R11.10 - Vomiting, unspecified Plan: resoved (3) History of cervical cancer: Status: Acute Code(s): Z85.41 - Personal history of malignant neoplasm of cervix uteri Plan: stable (4) Pyelocystitis: Status: Acute Code(s): N12 - Tubulo-interstitial nephritis, not specified as acute or chronic Plan: stent placed and d/c with antibiotics Medications at Discharge Home Medications lidocaine-prilocaine 2.5 %-2.5 % topical cream 1 applic topical ONCE PRN port access 30 days #30 grams 01/05/22 acetaminophen 500 mg tablet (Tylenol Extra Strength) 500 mg PO Q6H PRN Pain 01/17/22 simethicone 125 mg capsule (Gas-X Extra Strength) 125 mg PO QD-BID PRN Gastric Reflux 01/23/22 loperamide 2 mg capsule (Imodium A-D) 2 mg PO Q6H PRN Diarrhea 02/15/22 prochlorperazine maleate 10 mg tablet 10 mg PO Q6H PRN nausea and vomiting #30 tabs 03/07/22 ondansetron HCl 8 mg tablet 8 mg PO Q8H nausea 03/22/22 ciprofloxacin HCl 500 mg tablet (Cipro) 500 mg PO BID #14 tabs 03/24/22 Hospital Course Summary of Care Provided Hospital Course: 51-year-old female who was brought in with severe pain nausea vomiting from obstructing stone, she was hydrated over the night the next day we took her to surgery and she underwent a cystoscopy and stent placement for an obstructing stone in the mid ureter on the left side at the time of the placement the stent she had severe pus and purulent urine coming from the left kidney this was sent off as a culture cultures pending. She is clinically now doing well I think she can be safely discharged home with a course of oral antibiotics my office will call her to get her set up for outpatient surgery to laser the stone and will continue with antibiotics as an outpatient and will call her if he needs a different antibiotic based on the culture results which are still pending. Physical Exam Const alert and oriented x3 General Appearance: cooperative HEENT normocephalic, head/scalp atraumatic, EAC's normal and TM's normal bilaterally Eyes PERRL and EOMs intact bilaterally Pupil: sluggish Neck no lymphadenopathy, supple and no JVD General: trachea midline Lymph Lymphatic: no lymphadenopathy noted, lymphedema and lymphadenopathy Resp normal respiratory effort, normal air movement and clear to auscultation bilaterally Cardio regular rate, regular rhythm and peripheral pulses 2+ throughout GI soft to palpation, non-tender and non-distended Extremity normal capillary refill and no clubbing, cyanosis or edema General Extremity: no tenderness to palpation of joints or extremities Skin no rashes or lesions noted General Skin Exam: turgor normal Lesions: no lesions Rashes: no rashes Neuro CN's II-XII intact bilaterally Speech: speech normal Motor Exam: strength 5/5 throughout; Negative for general weakness Psych thought process normal, cooperative and affect normal Appearance: appropriate MDM Narrative Medical decision making narrative: See H&P Medical Records Data Medical Nutrition Assessment Dietitian: Malnutrition Criteria Met Start: 03/23/22 11:57 Freq: Status: Active Protocol: Document 03/23/22 11:58 (Rec: 03/23/22 11:58 [id number]) Nutrition Malnutrition Evidence of Malnutrition Exists Yes Malnutrition (severe): Chronic Evidenced By Suboptimal Energy Intake ( Severe),Weight Loss (Severe) Clinical Problem Chronic Disease or Condition Related Malnutrition Etiology related to cervical cancer Signs/Symptoms as evidenced by 10.5% weight loss in 1 month and pt consuming <75% of estimated energy needs for >1 month Status Active Problem Recommendation Dietitian Recommendations/Changes Continue Regular diet to optimize oral intakes. RD will order 240mL Ensure Clear (mixed doherty) BID and Beneprotein BID. Weight / BMI Weight Weight: 73.6 kg Body Mass Index (BMI) 26.0 ABG / Lab / Microbiology Data Microbiology: Microbiology 03/23/22 10:00 Urine, Cystoscopy Urine Culture - Preliminary 03/22/22 16:40 Urine, Clean Catch Urine Culture - Final Klebsiella pneumoniae sp pneum D/C Instructions Discharge Diet: No restrictions and Light diet - advance as tolerated Call your doctor if you observe: Fever of 101 or Higher Please Follow Up With: Benja Wilder MD When: [phone], call my office to set up surgery to laser stone Meaningful Use Info Meaningful Use Diagnoses (Choose all that apply): None applicable Discharge Plan Admission Admit Date/Time: 03/22/22 18:52 Primary Reason for Your Visit: stone and infection Attending Provider: Benja Wilder Primary Care Provider: Lyssa Patrick Discharge Orders/Prescriptions Prescriptions: New ciprofloxacin HCl [Cipro] 500 mg tablet 500 mg PO BID Qty: 14 0RF Continued lidocaine-prilocaine 2.5-2.5 % cream 1 applic topical ONCE PRN (Reason: port access) 30 Days Qty: 30 2RF acetaminophen [Tylenol Extra Strength] 500 mg tablet 500 mg PO Q6H PRN (Reason: Pain) simethicone [Gas-X Extra Strength] 125 mg capsule 125 mg PO QD-BID PRN (Reason: Gastric Reflux) loperamide [Imodium A-D] 2 mg capsule 2 mg PO Q6H PRN (Reason: Diarrhea) ondansetron HCl 8 mg tablet 8 mg PO Q8H prochlorperazine maleate 10 mg tablet 10 mg PO Q6H PRN (Reason: nausea and vomiting) Qty: 30 2RF Referrals / Follow Up: Lyssa Patrick [Other] Lyssa Patrick [Other] Benja Wilder MD [Med Staff - Active Staff] - Disposition Discharge Orders: Discharge Patient (Routine); Ordered 03/24/22 Ordered By: Dr. Benja Wilder
== END 2022-03-24 14:50 | disposition home or self-care (01) | DRG 660 ==
LOC: ED 18:23 → MS3 19:39
PROVIDERS: Admitting Provider Urology; Emergency Provider Emergency Medicine; Visit Provider Urology
PROC: 0T778DZ Dilation of Left Ureter with Intraluminal Device, Via Natural or Artificial Opening Endoscopic (ICD-10-PCS; CPT 52332; principal; 2022-03-23 08:20)
DX: N20.1 Calculus of ureter (principal); N12 Tubulo-interstitial nephritis, not specified as acute or chronic; R11.10 Vomiting, unspecified; Z87.891 Personal history of nicotine dependence; Z92.3 Personal history of irradiation; Z90.722 Acquired absence of ovaries, bilateral; Z85.41 Personal history of malignant neoplasm of cervix uteri
CPT/HCPCS: 36591; 74176; 76000; 80048; 81001; 83735; 85025; 87077; 87086; 87088; 87186; 97802; 99283; J7030; A4216; C1769; J0744; J2405

== ENCOUNTER → 2022-05-18 | Outpatient (CLI) | payer BC, SELFPAY ==
--- NOTE | 2022-05-18 12:50 | CT_ITS ---
STUDY: CT CHEST, ABDOMEN T PELVIS WITH CONTRAST REASON FOR EXAM: Female, 51 years old. CERVICAL CA. Follow-up. RADIATION DOSAGE (If Supplied By Facility): CTDIvol = ( 11.73 ) mGy, DLP = ( 994.29 ) mGycm TECHNIQUE: Transaxial imaging was performed following intravenous administration of IV 100mL Isovue-300. Individualized dose optimization techniques were used for this CT. COMPARISON: Comparison is made with prior examination 03/22/2022. FINDINGS: CHEST A right-sided Port-A-Cath is seen with the tip in the superior vena cava. The lungs are normal. There is no demonstrated pleural abnormality. Normal heart and pericardium. Normal mediastinum. Normal hilar regions. Normal unenhanced pulmonary arteries. Normal aorta arch and descending thoracic aorta. There are degenerative changes of the thoracic spine. Increased kyphosis. There is no demonstrated abnormality of the visualized upper abdomen. ABDOMEN Normal liver. The gallbladder is contracted. Normal spleen. Normal pancreas. Normal bilateral adrenal glands. Normal right kidney. Normal left kidney. Normal visualized stomach. Normal small intestine. There is circumferential wall thickening of the rectosigmoid colon with increased markings in the surrounding peritoneal fat. Colitis should be ruled out. This may be related to postoperative radiation therapy. Clinical correlation is recommended. The appendix is visualized and appears normal. Normal abdominal aorta. Normal inferior vena cava. There is borderline retroperitoneal lymphadenopathy with enlarged nodes no greater than 10mm in the short axis diameter. There is a small umbilical hernia containing fat. There are mild degenerative changes of the visualized lumbar spine. PELVIS There is a mild degree of diffuse bladder wall thickening. The patient is status post hysterectomy. There is no pelvic fluid. There is no pelvic lymphadenopathy or mass lesion. There is diffuse atherosclerotic calcification of the pelvic arteries. CT/CT Chest, Abd, Pel w/Contrast IMPRESSION: Findings suggestive of colitis involving the rectosigmoid colon as described. The patient is status post hysterectomy. Diffuse bladder wall thickening. Postsurgical changes in the lower anterior abdominal wall. Electronically Signed: Kameron Tripathi MD at 15:44 EDT ,
[2022-05-18] MEDS: 0.9% Saline Lock 10 ML Syringe IV (13:19)
== END | disposition home or self-care (01) ==
LOC: CT 12:49
DX: C53.9 Malignant neoplasm of cervix uteri, unspecified (principal)
CPT/HCPCS: 71260; 74177; Q9967

== ENCOUNTER → 2022-11-27 | Outpatient (CLI) | payer BC, SELFPAY ==
--- NOTE | 2022-11-27 08:22 | CT_ITS ---
STUDY: CT CHEST, ABDOMEN T PELVIS WITH CONTRAST REASON FOR EXAM: Female, 52 years old. MALIGNANT NEOPLASM OF CERVIX RADIATION DOSAGE (If Supplied By Facility): CTDIvol = ( 12.50 ) mGy, DLP = ( 953.99 ) mGycm TECHNIQUE: Transaxial imaging was performed following intravenous administration of IV 100mL Isovue-300. Multiplanar coronal and sagittal images were reformatted. Individualized dose optimization techniques were used for this CT. COMPARISON: Comparison is made with prior examination May 18, 2022. FINDINGS: CHEST The previously seen right sided baljeet catheter is been removed. Stable small benign-appearing bilateral axillary lymph nodes. Stable minimal increased markings at the lung bases suggest mild linear atelectasis. There is no demonstrated pleural abnormality. Normal heart and pericardium. Normal mediastinum. Normal hilar regions. Normal unenhanced pulmonary arteries. Normal aorta arch and descending thoracic aorta. There is an increased kyphosis of the thoracic spine. There is no demonstrated abnormality of the visualized upper abdomen. ABDOMEN The visualized lung bases are unremarkable. The visualized portions of the heart are within normal limits. Normal liver. Normal gallbladder and extrahepatic biliary system. Normal spleen. Normal pancreas. Normal bilateral adrenal glands. Normal right kidney. Normal left kidney. Normal visualized stomach. Normal small intestine. Large amount of fecal material is seen in the colon. Persistent circumferential wall thickening of the rectum with increased markings in the surrounding peritoneal fat more prominent on the left side. This may represent post radiation changes. There is non-visualization of the appendix. Normal abdominal aorta. Normal inferior vena cava. Normal retroperitoneum. Normal abdominal wall. There are mild degenerative changes of the visualized lumbar spine. PELVIS The urinary bladder is not adequately distended. Status post hysterectomy. There is no pelvic fluid. There is no pelvic lymphadenopathy or mass lesion. Normal visualized pelvic arteries. CT/CT Chest, Abd, Pel w/Contrast IMPRESSION: Status post hysterectomy. Persistent circumferential wall thickening of the rectum with increased markings in the surrounding peritoneal fat. This may represent changes secondary to post radiation treatment. Electronically Signed: Kameron Tripathi MD at 13:45 EDT ,
== END | disposition home or self-care (01) ==
LOC: CT 08:17
DX: C53.8 Malignant neoplasm of overlapping sites of cervix uteri (principal)
CPT/HCPCS: 71260; 74177; Q9967

== ENCOUNTER 2022-12-25 10:02 | Outpatient (RCR) | payer BC, SELFPAY ==
--- NOTE | 2022-12-25 15:48 | HP.OTEVAL_ITS ---
Patient's Visit Information MELA GAMEZ is a 52 year old F, referred to Occupational Therapy by Dr. Iris Coates MD, with a diagnosis of lymphedema. 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 From 01/16/2022 ? 02/23/2022 she completed adjuvant chemoradiation. pt states she has now noticed swelling in pelvis/ groin swelling on the left side extending into the left labia. Pt states she has noticed the swelling is more following working 10 and 12 hour days. pt states she tries to avoid it but sometimes works 12 hour days 3 days in a row and swelling is more- swelling does go down when she sleeps. pt states she would like to know how to mtg. her left groin swelling. - Lymphedema (Circumferential Measure) Below knee: right 39 left 39cm Above knee: right 39cm left 40cm Mid-thigh: right 53cm left 46cm Groin: right 59cm left 63cm Lower Exremity Comments: swelling in pelvic region - Lower Limb Functional Index Lower Extremity Functional Score: 79 - Goals Demonstrate a 20% reduction in edema by d/c: Yes Demonstrate adequate knowledge of self-massage by 2nd week: Yes Demonstrate adequate knowledge skin care/prec by 2nd week: Yes Demonstrate adequate knowledge therapeutic exercises by d/c: Yes Select approp compression garment w/donning/care/wear by d/c: Yes - Rehabilitation General Assessment: pt demo with stage I lymphedema following her cancer treatments- pt demo need for ed. on HEP as her drive to this facility is over an hour. Therapist ed. pt on dx and use of compression garment- pt receptive to compression bike shorts but not leggings due to how hot they will be. Therapist ed. pt to try compression shorts and take measurements to ensure compression sorts are mtg. the edema. If able to mtg. with compression shorts and lymph ex/self manual lymph massage- pt will need leggings- if unable to mtg. pt receptive to compromise. pt request one visit only due to travel time an hour to this facility- therapist provided contact info if pt has questions. Rehabilitation Potential: Good - Anticipated Interventions Education re assistive Equipment, Education re Diagnosis, Education re Life-long lymphedema Management, Education re Skin Care and Precautions, Education re Self Massage Techniques, Education re Correct Donning Tech,Care&Wearing Sched Comp Garments, Home Program - Visit Plan TEXT: Thank you for the opportunity to evaluate your patient. For Medicare and Medicare HMO plans, please review the plan of care and approve it. It will need to be FAXED BACK to us at [phone] for Medicare purposes. Please let me know if there are questions or concerns regarding this plan of care. Physician Signature: Date:
--- NOTE | 2023-02-15 13:29 | HP.OTDCSUM ---
Discharge Summary D/C Summary: It has been my pleasure to treat QUIANA ROWE under orders from Dr. Iris Coates MD, for the diagnosis of lymphedema for a total of 1 visit(s). Please see the following information for a summary of their discharge status. Goals Patient Goals: Learn how to Manage Lymphedema Goal: Patient will demonstrate a 20% reduction in edema by discharge: Yes Goal: Patient will demonstrate adequate knowledge of self-massage by the end of the second week.: Yes Goal: Patient will demonstrate adequate knowledge of skin care and precautions by the end of the first week.: Yes Goal: Patient will demonstrate adequate knowledge of therapeutic exercises by discharge.: Yes Goal: Patient will select an appropriate compression garment and demonstrate adequate knowledge of correct donning technique, care and wearing schedule by discharge.: Yes D/C Information d/c sentence: If there are questions or concerns regarding this patient's occupational therapy, please fell free to call me at [phone]. Thank you for the referral of this patient. Sincerely, Tamie Fonseca, OTR/L, CHT
--- NOTE | 2023-02-15 13:34 | HP.OT.NRP ---
Patient Information Patient Information: QUIANA ROWE was seen in my office for initial evaluation on 12/25/22. The following Plan of Care was established for this patient: Anticipated Interventions Anticipated Interventions: Education re assistive Equipment, Education re Diagnosis, Education re Life-long lymphedema Management, Education re Skin Care and Precautions, Education re Self Massage Techniques, Education re Correct Donning Tech,Care&Wearing Sched Comp Garments and Home Program Last Seen Last Seen: This patient was last seen in our office 12/25/22. Pertinent comments regarding their Occupational therapy will appear below: pt was seen for OT eval only- was given information on treatment for her dx and compression garments- pt has not scheduled further OT services and at time time d/c due to time lapse in services. At this point I will be discontinuing this patient from occupational therapy. I would be happy to see this patient again in the future if found appropriate by the physician. Thank you! Tamie Fonseca, OTR/L, CHT
== END 2022-12-25 19:00 | disposition home or self-care (01) ==
LOC: OT 10:02
DX: C53.8 Malignant neoplasm of overlapping sites of cervix uteri (principal)
CPT/HCPCS: 97166; 97530

== ENCOUNTER → 2023-07-03 | Outpatient (CLI) | payer BC, SELFPAY ==
--- NOTE | 2023-07-03 08:17 | CT_ITS ---
HISTORY: MALIGNANT NEOPLASM OF OVERLAPPING SITES OF CERVIX. TECHNIQUE: Helically acquired images were obtained of the chest, abdomen, and pelvis after the intravenous administration of 100mL Isovue-300. No oral contrast was administered. 2-D reformatted images provided. A radiation dose optimization technique was used for this scan. 1195 images. COMPARISON: 11/27/2022, 05/18/2022. FINDINGS: ----Chest: LARGE AIRWAYS: Patent. LUNGS: Mild centrilobular emphysema. Stable 3 mm right minor fissural scar and 3 mm right middle lobe nodule. PLEURA: No pneumothorax or significant pleural effusion. HEART AND PERICARDIUM: Heart within normal limits in size. No significant pericardial effusion. VESSELS: No thoracic aortic aneurysm or dissection flap. No large central central pulmonary embolism although study not performed with the pulmonary embolism protocol. MEDIASTINUM AND SUZAN: No pathologically enlarged lymph nodes. BONES: Intact without suspicious osteoblastic or osteolytic lesion. ----Abdomen/Pelvis: BOWEL: Bowel including appendix nondilated. Moderate stool in the colon. Decreased rectal wall thickening. PERITONEUM: No significant free fluid or pathologically enlarged lymph nodes. LIVER: No enhancing mass. GALLBLADDER/BILIARY TREE: Gallbladder present. SPLEEN/PANCREAS/ADRENAL GLANDS: Homogeneous and nonenlarged. KIDNEYS: Chronic left renal atrophy. No hydronephrosis or enhancing mass. VESSELS: No abdominal aortic aneurysm. PELVIC ORGANS: Chronic bladder wall thickening. Hysterectomy with pelvic surgical clips. ABDOMINAL WALL: Chronic lower anterior scarring. BONES: Mild degenerative change without suspicious osteoblastic or osteolytic lesion. CT/CT Chest, Abd, Pel w/Contrast IMPRESSION: No acute abnormality or significant interval change in the chest. Stable 3 mm right middle lobe pulmonary nodules or scars. No evidence for metastatic disease or acute abnormality in the abdomen or pelvis. Chronic bladder wall thickening. Decreased rectal wall thickening. Electronically Signed: Sabrina Echeverria MD at 10:26 EST ,
== END | disposition home or self-care (01) ==
DX: C53.8 Malignant neoplasm of overlapping sites of cervix uteri (principal)
CPT/HCPCS: 71260; 74177; Q9967